=== PATIENT | female | born 1975 | race African-American/Black ===

== ENCOUNTER 2016-11-24 01:13 | Emergency (ER) | payer OTHER ==
[~2016-11-24] VITALS: Ht 152.4 cm; Wt 103.0 kg
[~2016-11-24 01:13] MED LIST: AMLODIPINE BESY10 MG PO; BUTALB-APAP-CA1 EACH PO; FERROUS SULFAT325 MG PO; FLAGYL500 MG PO; LEVAQUIN500 MG PO; LISINOPRIL10 MG PO; NASONEX17 GM BOTH NARES; PROAIR HFA8.5 GM IH; ZOFRAN4 MG PO
[2016-11-24 01:55] LABS: EOSINOPHIL (%) 0.4 % (0-5); EOSINOPHIL COUNT 0.1 K/uL (0-0.3); HEMATOCRIT 27.2 % (36.0-46.0); IMMATURE GRANULOCYTE (%) 0.6 % (0.0-0.7); IMMATURE GRANULOCYTE COUNT 0.1 K/uL; INSTRUMENT ABS NEUTROPHIL CT 15.9 K/uL; MCH 19.3 PG (29.0-34.0); MCHC 28.7 G/DL (30.0-36.0); MCV 67.3 FL (83-99); MEAN PLAT.VOLUME 9.9 uM^3 (9.5-12.4); MONOCYTE (%) 5.5 % (3-12); MONOCYTE COUNT 1.1 K/uL (0-0.8); NEUTROPHIL (%) 82.9 % (45-76); NEUTROPHIL COUNT 15.9 K/uL (1.8-6.4); PLATELET COUNT 407 K/uL (156-360); RBC DIS.WIDTH-CV 18.7 % (11.8-14.6); RBC DIS.WIDTH-SD 45.2 % (39-53); RED BLOOD COUNT 4.04 M/uL (3.80-5.20); WHITE BLOOD COUNT 19.1 K/uL (4.1-10.2)
[2016-11-24 02:00] LABS: CHLORIDE 106 mEq/L (99-109); POTASSIUM 4.1 mEq/L (3.7-5.4); SODIUM 139 mEq/L (136-147)
[2016-11-24 02:02] LABS: GLUCOSE 172 mg/dL (70-99)
[2016-11-24 02:03] LABS: ANION GAP 10 MEQ/L (2-14)
[2016-11-24 02:04] LABS: TOTAL BILIRUBIN 0.3 mg/dL (0.0-1.0)
[2016-11-24 02:05] LABS: SERUM ETHYL ALCOHOL < 10 mg/dL
[2016-11-24 02:06] LABS: ALKALINE PHOSPHATASE 82 IU/L (3-129); GFR ESTIMATE (CALCULATED) > 59 mL/min/
[2016-11-24 02:07] LABS: UREA NITROGEN (BUN) 10 mg/dL (9-23)
[2016-11-24 02:09] LABS: CREATINE KINASE 91 IU/L (1-294); TOTAL CK 91 IU/L (1-294)
[2016-11-24 02:17] LABS: CK-MB 0.6 ng/mL (0.0-4.9); QUANTITATIVE HCG < 4.0 MIU/ML
[2016-11-24 04:11] VITALS: BP 118/70
== END 2016-11-24 04:12 | disposition home or self-care (01) ==
LOC: EME 01:13
PROVIDERS: Emergency Medicine
DX: T40.7X1A Poisoning by cannabis (derivatives), accidental (unintentional), initial encounter (principal); Z88.8 Allergy status to other drugs, medicaments and biological substances
CPT/HCPCS: 80053; 82550; 82553; 84702; 85025; 99281; 99284; G0480; J2405; J7030